=== PATIENT | male | born 1955 | race Caucasian/White ===

== ENCOUNTER 2022-06-24 08:18 | Outpatient (CLI) | payer OTHER, MEDICAID | END 2022-06-24 08:19 | disposition home or self-care (01) | LOC: CSHWCC 08:18 | PROVIDERS: ATTEND Nurse Practitioner Family | DX: E11.621 Type 2 diabetes mellitus with foot ulcer (principal); L97.425 Non-pressure chronic ulcer of left heel and midfoot with muscle involvement without evidence of necrosis | CPT/HCPCS: 11042; 87070; 87077; 87186; 87205; 99203; G0463 ==

== ENCOUNTER 2022-06-24 10:31 | Outpatient (CLI) | payer OTHER, MEDICAID | END 2022-06-24 10:32 | disposition home or self-care (01) | LOC: CSHRAD 10:31 | PROVIDERS: ATTEND Nurse Practitioner Family | DX: E11.621 Type 2 diabetes mellitus with foot ulcer (principal); L97.425 Non-pressure chronic ulcer of left heel and midfoot with muscle involvement without evidence of necrosis | CPT/HCPCS: 11042; 87070; 87077; 87186; 87205; 99203; G0463 ==

== ENCOUNTER 2022-07-04 09:25 | Outpatient (CLI) | payer OTHER, MEDICAID | END 2022-07-04 09:26 | disposition home or self-care (01) | LOC: CSHWCC 09:25 | PROVIDERS: ATTEND Nurse Practitioner Family | DX: E11.621 Type 2 diabetes mellitus with foot ulcer (principal); L97.425 Non-pressure chronic ulcer of left heel and midfoot with muscle involvement without evidence of necrosis | CPT/HCPCS: 29445; 97139; G0463; 99212 ==

== ENCOUNTER 2022-07-11 09:33 | Outpatient (CLI) | payer OTHER, MEDICAID | END 2022-07-11 09:34 | disposition home or self-care (01) | LOC: CSHWCC 09:33 | PROVIDERS: ATTEND Nurse Practitioner Family | DX: E11.621 Type 2 diabetes mellitus with foot ulcer (principal); L97.425 Non-pressure chronic ulcer of left heel and midfoot with muscle involvement without evidence of necrosis | CPT/HCPCS: 29445 ==

== ENCOUNTER 2022-07-18 10:36 | Outpatient (CLI) | payer OTHER, MEDICAID | END 2022-07-18 10:37 | disposition home or self-care (01) | LOC: CSHWCC 10:36 | PROVIDERS: ATTEND Nurse Practitioner Family | DX: E11.621 Type 2 diabetes mellitus with foot ulcer (principal); L97.425 Non-pressure chronic ulcer of left heel and midfoot with muscle involvement without evidence of necrosis | CPT/HCPCS: 99213; G0463 ==

== ENCOUNTER 2022-07-29 10:21 | Day surgery (SDC) | payer OTHER, MEDICAID ==
[2022-07-18 12:14] VITALS: BMI 36.0
[2022-07-29] MEDS ORDERED: Bupivacaine PF 0.5% 30 ML VIAL ONE (11:07)
[2022-07-29] MEDS ORDERED: Ondansetron PF 4 MG/2 ML Vial ONE (11:46)
[2022-07-29] MEDS ORDERED: Fentanyl 100 MCG/2 ML VIAL ONE (11:46)
[2022-07-29] MEDS ORDERED: Lidocaine 1% PF 5 ML VIAL ONE (11:46)
[2022-07-29] MEDS ORDERED: PROPOFOL 20 ML ONE (11:46)
[2022-07-29] MEDS ORDERED: CEFAZOLIN 2 GM VIAL ONE (11:49)
[2022-07-29] MEDS ORDERED: Rocuronium Bromide 10 MG/ML (10ML VIAL) ONE (11:54)
[2022-07-29] MEDS ORDERED: PHENYLEPHRINE-NS 100 MCG/ML 10 ML SYRINGE ONE (12:07)
[2022-07-29] MEDS ORDERED: Glycopyrrolate 0.2 MG/ML 5 ML SYRINGE ONE (13:13)
[2022-07-29] MEDS ORDERED: HYDROcodone/Acetaminophen 5/325 mg Tablet ONE (14:22)
== END 2022-07-29 15:00 | disposition home or self-care (01) ==
LOC: CSHSDC 10:21
PROVIDERS: ATTEND Podiatrist Foot & Ankle Surgery
PROC: 0SGN04Z Fusion of Left Metatarsal-Phalangeal Joint with Internal Fixation Device, Open Approach (ICD-10-PCS; principal; 2022-07-29)
DX: M20.12 Hallux valgus (acquired), left foot (principal); E78.1 Pure hyperglyceridemia; E11.9 Type 2 diabetes mellitus without complications; Z79.899 Other long term (current) drug therapy; F17.200 Nicotine dependence, unspecified, uncomplicated; I10 Essential (primary) hypertension
CPT/HCPCS: 28750; 73620; C1713 ×6; J2405; J2704; J3010; S0020

== ENCOUNTER 2023-03-27 10:04 | Day surgery (SDC) | payer OTHER, MEDICAID ==
[2023-03-23 09:33] VITALS: BMI 32.8
[2023-03-27] MEDS ORDERED: Bupivacaine PF 0.5% 30 ML VIAL ONE (12:12)
[2023-03-27] MEDS ORDERED: CEFAZOLIN 2 GM VIAL ONE (12:20)
[2023-03-27] MEDS ORDERED: Ketorolac Tromethamine 30 MG/ML VIAL ONE (12:20)
[2023-03-27] MEDS ORDERED: PROPOFOL 20 ML ONE ×2 (12:20→12:35)
[2023-03-27] MEDS ORDERED: Ondansetron PF 4 MG/2 ML Vial ONE (12:20)
[2023-03-27] MEDS ORDERED: Dexamethasone 20 MG/5 ML VIAL ONE (12:20)
[2023-03-27] MEDS ORDERED: Midazolam HCl 2 mg/2 ml Vial ONE (12:21)
[2023-03-27] MEDS ORDERED: Lidocaine 1% PF 5 ML VIAL ONE (12:21)
[2023-03-27] MEDS ORDERED: fentaNYL 50 mcg/mL 1 mL Vial ONE (12:21)
== END 2023-03-27 15:15 | disposition home or self-care (01) ==
LOC: CSHSDC 10:04
PROVIDERS: ATTEND Podiatrist Foot & Ankle Surgery
PROC: 0SGM07Z Fusion of Right Metatarsal-Phalangeal Joint with Autologous Tissue Substitute, Open Approach (ICD-10-PCS; principal; 2023-03-27)
DX: M20.11 Hallux valgus (acquired), right foot (principal); E11.40 Type 2 diabetes mellitus with diabetic neuropathy, unspecified; G89.4 Chronic pain syndrome; I10 Essential (primary) hypertension; E78.5 Hyperlipidemia, unspecified; M10.9 Gout, unspecified; Z68.34 Body mass index [BMI] 34.0-34.9, adult; Z79.84 Long term (current) use of oral hypoglycemic drugs; Z79.899 Other long term (current) drug therapy
CPT/HCPCS: 28750; 73620; J3010; C1713; J1100; J1885; J2250; J2405; J2704; S0020